=== PATIENT | female | born 1995 | race African-American/Black ===

== ENCOUNTER 2017-10-19 21:58 | Emergency (ER) | payer MEDICAID ==
[~2017-10-19] VITALS: Ht 162.6 cm; Wt 54.4 kg
[2017-10-19 22:14] VITALS: BP 130/87
[2017-10-19 22:41] LABS: Urine RBC None Seen /hpf (0 - 4)
[2017-10-19 22:45] LABS: Basophils # (auto) 0.1 uL; Eosinophils # (auto) 0.1 uL; Eosinophils % (auto) 1.4 % (0.0-7.0); Hematocrit 42.3 % (36.0-46.0); Hemoglobin 14.2 g/dL (12.2-16.2); Lymphocytes # (auto) 3.2 uL; Lymphocytes % (auto) 48.1 % (10.0-50.0); Mean Corpuscular Hemoglobin 28.7 pg (28.0-32.0); Mean Corpuscular Hgb Conc. 33.6 g/dL (32.0-36.0); Mean Corpuscular Volume 85.5 fL (80.0-100.0); Mean Platelet Volume 6.7 fL (6.9-10.8); Monocytes # (auto) 0.4 uL; Monocytes % (auto) 6.3 % (0.0-12.0); Neutrophils # (auto) 2.9 uL; Neutrophils % (auto) 43.2 % (37.0-80.0); Nucleated Red Blood Cells % 0.1 %; Platelet Count (auto) 283 10^3/uL (140-450); Red Cell Distribution Width 14.4 % (11.8-14.3); White Blood Cell 6.7 10^3/uL (4.4-10.8)
[2017-10-19 22:50] LABS: Urine Bilirubin Negative (Negative); Urine Blood 2+ /uL (Negative); Urine Color Yellow (Yellow); Urine Glucose Normal (Normal); Urine Ketone Negative (Negative); Urine Mucus FEW (None Seen); Urine Nitrite Negative (Negative); Urine Squamous Epithelial Cell FEW /hpf (<5); Urine Urobilinogen Normal (Negative)
[2017-10-19 23:06] LABS: Albumin 4.1 g/dL (3.4-5.0); BUN/Creatinine Ratio 12.8; Calcium 9.1 mg/dL (8.5-10.1)
[2017-10-19 23:08] LABS: Bilirubin, Total 0.5 mg/dL (0.2-1.0); Total Protein 8.2 g/dL (6.4-8.2)
== END 2017-10-20 04:10 | disposition home or self-care (01) ==
LOC: ER 21:58
DX: O20.9 Hemorrhage in early pregnancy, unspecified (principal); O26.891 Other specified pregnancy related conditions, first trimester; R10.9 Unspecified abdominal pain; Z3A.01 Less than 8 weeks gestation of pregnancy
CPT/HCPCS: 36415; 80053; 81001; 84702; 85025

== ENCOUNTER 2021-04-28 10:04 | Emergency (ER) | payer MEDICAID ==
[~2021-04-28] VITALS: Ht 162.6 cm; Wt 70.3 kg
[2021-04-28 10:04] VITALS: BP 128/85
== END 2021-04-28 12:01 | disposition home or self-care (01) ==
LOC: ER 10:04
DX: J02.9 Acute pharyngitis, unspecified (principal); H92.02 Otalgia, left ear

== ENCOUNTER 2021-04-29 06:13 | Emergency (ER) | payer MEDICAID ==
[~2021-04-29] VITALS: Ht 162.6 cm; Wt 70.3 kg
[2021-04-29 06:17] VITALS: BP 139/81
[2021-04-29] MEDS ORDERED: cefTRIAXone SOD 1,000 MG VL IM ONE (07:15)
== END 2021-04-29 07:58 | disposition home or self-care (01) ==
LOC: ER 06:13
DX: J02.9 Acute pharyngitis, unspecified (principal)
CPT/HCPCS: 96372; 99283; J0696